=== PATIENT | male | born 1985 | race Caucasian/White ===

== ENCOUNTER 2024-11-07 09:18 | Outpatient (CLI) | payer SELFPAY ==
--- NOTE | 2024-11-07 09:40 | XR_ITS ---
WS: [id number] Left shoulder, 3 views, 11/07/2024 Clinical Data: PAIN IN LEFT SHOULDER/INSTABILITY Comparison: None. Findings: No fractures or dislocations are seen. The AC joint is normal. The adjacent left clavicle, left scapula and ribs are normal. The soft tissues are unremarkable. XR/XR shoulder LT min 2V* [id number] Impression: Negative left shoulder.
--- NOTE | 2024-11-07 09:40 | XR_ITS ---
WS: [id number] Lumbar spine, AP and lateral views, 11/07/2024 Clinical Data: LOW BACK PAIN/R SIDE SCIATICA Comparison: None. Findings: No compression fractures or subluxation is seen. No disc space narrowing is seen. The transverse processes and SI joints are normal. XR/XR lumbar spine 2-3V* [id number] Impression: Negative lumbar spine.
== END 2024-11-07 09:19 | disposition home or self-care (01) ==
LOC: RAD 09:28
DX: M54.50 Low back pain, unspecified (principal); M54.31 Sciatica, right side; M25.512 Pain in left shoulder; M25.312 Other instability, left shoulder
CPT/HCPCS: 72100; 73030

== ENCOUNTER 2025-01-02 07:04 | Outpatient (CLI) | payer OTHER, SELFPAY ==
--- NOTE | 2025-01-02 07:18 | MR_ITS ---
WS: [id number] MRI LUMBAR SPINE NONCONTRAST HISTORY: LUMBAR RADICULOPATHY COMPARISON: Radiograph 11/07/2024 TECHNIQUE: Sagittal and axial multisequence imaging is submitted. Normal lumbar alignment with no compression fractures or marrow edema. Disc spaces and vertebral body heights are well-preserved. Conus terminates normally at L1. L1-L2: Normal. L2-L3: Normal. L3-L4: Mild disc bulging. Mild ligamentum flavum and facet arthritis. No significant stenosis. L4-L5: Mild annular disc bulging with a shallow LEFT foraminal disc protrusion and annular fissure. Mild osteophytic ridging with ligamentum flavum and facet arthritis. There is mild disc encroachment upon the subarticular recesses and mild bilateral foraminal narrowing due to disc and osteophyte disease. L5-S1: Mild annular disc bulging with shallow bilateral paracentral disc protrusions. Mild osteophytic ridging. Small RIGHT foraminal disc osteophyte with slight contact on the RIGHT exiting L5 nerve root. Paravertebral soft tissues are normal. MR/MR lumbar spine wo con* [id number] IMPRESSION: 1. No high-grade central or foraminal stenosis. 2. Mild RIGHT foraminal stenosis at L5-S1. Minimal disc osteophyte contact on the exiting RIGHT L5 nerve root. 3. L5-S1: Shallow bilateral paracentral disc protrusions. 4. L4-5: Shallow LEFT foraminal disc protrusion with annular fissure. Mild ethan ateral subarticular recess and foraminal stenosis due to disc and osteophyte di sease.
== END 2025-01-02 07:05 | disposition home or self-care (01) ==
PROVIDERS: Visit Provider Family Medicine
DX: M48.07 Spinal stenosis, lumbosacral region (principal); M48.061 Spinal stenosis, lumbar region without neurogenic claudication; M25.78 Osteophyte, vertebrae; M51.362 Other intervertebral disc degeneration, lumbar region with discogenic back pain and lower extremity pain; M24.28 Disorder of ligament, vertebrae; M47.896 Other spondylosis, lumbar region; M51.26 Other intervertebral disc displacement, lumbar region; M51.372 Other intervertebral disc degeneration, lumbosacral region with discogenic back pain and lower extremity pain
CPT/HCPCS: 72148